=== PATIENT | male | born 1955 | race Caucasian/White ===

== ENCOUNTER → 2018-04-18 | Day surgery (SDC) | payer OTHER ==
--- NOTE | 2018-04-19 15:05 | PATH ---
Cytology Non-Gynecological Report Patient Name: L[facility] BOLAND [facility]. Rec. #: [id number] /Age/Gender: 1955 (Age: 63) / M Account: [id number] Location: [facility] [place] SURGICAL Taken: 04/18/2018 Received: 04/18/2018 Reported: 04/19/2018 Physicians: Rocio Pal M.D. Specimen(s) Received THYROID FNA RIGHT Clinical History It Right thyroid nodule Final Diagnosis THYROID, RIGH, FINE NEEDLE ASPIRATION: SATISFACTORY FOR EVALUATION [place] CLASS II: BENIGN SMALL FOLLICULAR CELLS, MACROPHAGES, AND COLLOID PRESENT, CONSISTENT WITH A BENIGN THYROID NODULE. Electronically Signed Irene Hernandez M.D. Gross Description Received are eight direct smears, four of which are air-dried and Diff-Quik stained, and four of which are alcohol fixed and Pap stained. Also received is 20 ml of bloody formalin from which one cellblock is prepared.
== END | disposition home or self-care (01) ==
LOC: JASU-SURG 09:10
PROVIDERS: ATTEND Internal Medicine Endocrinology, Diabetes & Metabolism
PROC: 0G9K3ZX Drainage of Thyroid Gland, Percutaneous Approach, Diagnostic (ICD-10-PCS; principal; 2018-04-18)
PROC: BG44ZZZ Ultrasonography of Thyroid Gland (ICD-10-PCS; 2018-04-18)
DX: E04.1 Nontoxic single thyroid nodule (principal)
CPT/HCPCS: 10005; 76942; 88173; 88305-TC